=== PATIENT | male | born 2000 | race African-American/Black ===

== ENCOUNTER 2021-05-23 18:15 | Emergency (ER) | payer SELFPAY ==
[~2021-05-23] VITALS: Ht 195.6 cm; Wt 250.8 kg
[2021-05-23 19:34] LABS: BASO % 0.3 % (0.0-2.0); EOS # 0.2 (0.0-0.7); EOS % 1.3 % (0-4.0); GRAN # 10.2 (1.4-6.5); GRAN % 65.8 % (42.2-75.2); HEMATOCRIT 41.8 % (42.0-52.0); HEMOGLOBIN 13.3 g/dl (13.5-18.0); LYMPH % 25.4 % (20.0-51.0); MEAN CELL VOLUME 77 fl (80.0-100.0); MEAN CORPUSCULAR HEMOGLOBIN 25 pg (27.0-31.0); MEAN CORPUSCULAR HGB CONC 32 g/dl (33.0-37.0); MEAN PLATELET VOLUME 9.5 fl (7.4-10.4); MONO # 1.1 (0.1-0.6); MONO % 6.9 % (1.7-9.3); PLATELET COUNT 340 K/mm3 (130-400); REDCELL DISTRIBUTION WIDTH-CV 14.3 % (11.5-14.5)
[2021-05-23 19:51] LABS: ALBUMIN 4.4 gm/dL (3.5-5.0); BILIRUBIN,TOTAL 0.9 mg/dL (0.0-1.0); C-REACTIVE PROTEIN 1.6 mg/dL (0.0-0.9); CALCIUM 9.2 mg/dL (8.4-10.2); CREATININE, serum 0.75 (0.66-1.25); POTASSIUM 3.7 mmol/L (3.4-5.0); TOTAL PROTEIN 8.4 gm/dL (6.4-8.2)
[2021-05-23] MEDS ORDERED: CIPRO 500MG TA500 MG PO (20:52)
[2021-05-23] MEDS ORDERED: FLAGYL500 MG PO (20:52)
[2021-05-23 21:20] VITALS: BP 139/94; PULSE 89; TEMP 98.1
== END 2021-05-23 21:20 | disposition home or self-care (01) ==
LOC: COL.ER 18:15
PROVIDERS: Emergency Medicine
DX: R19.5 Other fecal abnormalities (principal); D72.829 Elevated white blood cell count, unspecified
CPT/HCPCS: J7030